=== PATIENT | female | born 1995 | race Caucasian/White ===

== ENCOUNTER 2021-03-17 11:27 | Emergency (ER) | payer OTHER ==
[2021-03-17 11:35] VITALS: BP 117/72; PULSE 102; RESP 18; TEMP 98.1
[2021-03-17] MEDS ORDERED: IBUPROFEN 800 MG TAB PO STA (11:45)
[2021-03-17] MEDS ORDERED: ORPHENADRINE 30 MG/ML 2 ML VIAL IM STA (11:50)
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
--- NOTE | 2021-03-17 12:09 | XR ---
EXAMINATION TYPE: XR shoulder complete LT, XR clavicle LT DATE OF EXAM: 03/17/2021 CLINICAL HISTORY: Injury with pain TECHNIQUE: Three views of the left shoulder are obtained. 2 views left clavicle. COMPARISON: None. FINDINGS: There is no acute fracture/dislocation evident in the left shoulder. The acromioclavicula r and glenohumeral joint spaces appear within normal limits. The visualized ribs are intact and unre markable. Images of the left clavicle show no acute displaced fracture. Sternoclavicular joint shows well-defin ed lucency, unfused growth plate or nonhealed fracture could have this appearance. Correlate with poi nt tenderness to exclude acute nondisplaced fracture which is felt unlikely. Overlying soft tissue is unremarkable. IMPRESSION: As above.
== END 2021-03-17 13:09 | disposition home or self-care (01) ==
LOC: EC 11:27
DX: M25.512 Pain in left shoulder (principal); V89.2XXA Person injured in unspecified motor-vehicle accident, traffic, initial encounter; Y92.410 Unspecified street and highway as the place of occurrence of the external cause
CPT/HCPCS: 73030; 73000; 71046; 99284; 96372; J2360